=== PATIENT | male | born 1955 | race Caucasian/White ===

== ENCOUNTER 2017-04-25 19:50 | Observation (INO) | payer SELFPAY ==
[~2017-04-25] VITALS: Ht 193 cm; Wt 94.5 kg
[2017-04-25 19:54] VITALS: BP 136/86; PULSE 72; RESP 20; TEMP 99; O2SAT 98
--- NOTE | 2017-04-25 20:02 | PD ---
Physical Exam Time Seen by Provider: 20:00 Narrative 62yo M c/o L sided chest pain x 2 days. Left arm cramping. +SOB. Denies worse w/ activity; just comes on at any time. Patient seen in triage. VS reviewed. Awaiting bed placement. Data Data Last Documented VS Vital Signs Date Time Temp Pulse Resp B/P Pulse Ox O2 Delivery O2 Flow Rate FiO2 04/25/17 19:54 99.0 72 20 136/86 98 Room Air MDM Supervised Visit with YING: Raquel Clarke Apr 25, 2017 20:02
[2017-04-25 20:17] VITALS: BP 116/72; PULSE 70; RESP 18; O2SAT 98
[2017-04-25] MEDS ORDERED: SODIUM CHLORIDE 0.9% FLUSH 10 ML FLUSH IVF PRN (20:30)
[2017-04-25] MEDS ORDERED: ASPIRIN 325 MG TAB PO ONE (20:30)
--- NOTE | 2017-04-25 20:32 | PD ---
HPI Chief Complaint: Chest Pain Time Seen by Provider: 20:10 Travel History International Travel<30 days: No Contact w/Intl Traveler<30days: No Traveled to known affect area: No History of Present Illness HPI 62yo M with no significant PMH presents to the ED with c/o left sided chest pain. States it has been there for about 2 days, intermittent and has some cramping in left arm. Associated with nausea and diaphoresis. Denies any fever , cough, sob, vomiting, abdominal pain, focal weakness or numbness. Pt also mentions that the door hit his head about 3 weeks ago and he had a scalp laceration that healed on its own but there is some numbness right above the laceration. PFSH Past Medical History Medical History: Denies Significant Hx ?: Not Past Surgical History Surgical History: No Previous Surgery Social History Alcohol Use: Yes Tobacco Use: No Substance Use: No Allergies-Medications (Allergen,Severity, Reaction): Coded Allergies: No Known Allergies (Unverified , 04/25/17) Reported Meds & Prescriptions Reported Meds & Active Scripts Active No Active Prescriptions or Reported Medications Review of Systems Except as stated in HPI: all other systems reviewed are Neg Physical Exam Narrative GENERAL: 62yo M not in distress. SKIN: +Keloid left chest that has been there since he was in school. HEAD: +Healed 2cm left parietal scalp laceration. EYES: Pupils equal and round. No scleral icterus. No injection or drainage. ENT: No nasal bleeding or discharge. Mucous membranes pink and moist. NECK: Trachea midline. No JVD. CARDIOVASCULAR: Regular rate and rhythm. No murmur appreciated. RESPIRATORY: No accessory muscle use. Clear to auscultation. Breath sounds equal bilaterally. GASTROINTESTINAL: Abdomen soft, non-tender, nondistended. MUSCULOSKELETAL: No obvious deformities. No clubbing. No cyanosis. No edema. NEUROLOGICAL: Awake and alert. No obvious cranial nerve deficits. Motor grossly within normal limits. Normal speech. PSYCHIATRIC: Appropriate mood and affect; insight and judgment normal. Data Data Last Documented VS Vital Signs Date Time Temp Pulse Resp B/P Pulse Ox O2 Delivery O2 Flow Rate FiO2 04/25/17 21:41 90 16 128/76 118/70 04/25/17 21:41 96 Room Air 04/25/17 20:17 4 04/25/17 19:54 99.0 Orders Ckmb (Isoenzyme) Profile (04/25/17 20:19) Complete Blood Count With Diff (04/25/17 20:19) Comprehensive Metabolic Panel (04/25/17 20:19) Magnesium (Mg) (04/25/17 20:19) Prothrombin Time / Inr (Pt) (04/25/17 20:19) Act Partial Throm Time (Ptt) (04/25/17 20:19) Troponin I (04/25/17 20:19) Chest, Single Ap (04/25/17 20:19) Ecg Monitoring (04/25/17 20:19) Bilateral Bp Monitoring (04/25/17 20:19) Iv Access Insert/Monitor (04/25/17 20:19) Oximetry (04/25/17 20:) Oxygen Administration (04/25/17 20:19) Aspirin (Aspirin) (04/25/17 20:30) Sodium Chloride 0.9% Flush (Ns Flush) (04/25/17 20:30) Electrocardiogram (04/25/17 20:18) CKMB (04/25/17 20:25) CKMB% (04/25/17 20:25) Alcohol Withdrawal Asmt-Ciwa Q4HX18 (04/25/17 21:48) ^ Seizure Precautions (04/25/17 21:48) Lorazepam Inj (Ativan Inj) (04/25/17 22:00) Admit Order (Ed Use Only) (04/25/17 21:53) Alcohol (Ethanol) (04/25/17 20:25) Labs Laboratory Tests Test 04/25/17 20:25 White Blood Count 6.0 TH/MM3 Red Blood Count 4.19 MIL/MM3 Hemoglobin 13.9 GM/DL Hematocrit 39.1 % Mean Corpuscular Volume 93.2 FL Mean Corpuscular Hemoglobin 33.1 PG Mean Corpuscular Hemoglobin 35.5 % Concent Red Cell Distribution Width 13.4 % Platelet Count 169 TH/MM3 Mean Platelet Volume 6.5 FL Neutrophils (%) (Auto) 69.1 % Lymphocytes (%) (Auto) 15.2 % Monocytes (%) (Auto) 10.8 % Eosinophils (%) (Auto) 4.3 % Basophils (%) (Auto) 0.6 % Neutrophils # (Auto) 4.1 TH/MM3 Lymphocytes # (Auto) 0.9 TH/MM3 Monocytes # (Auto) 0.6 TH/MM3 Eosinophils # (Auto) 0.3 TH/MM3 Basophils # (Auto) 0.0 TH/MM3 CBC Comment DIFF FINAL Differential Comment Prothrombin Time 10.7 SEC Prothromb Time International 1.0 RATIO Ratio Activated Partial 27.5 SEC Thromboplast Time Sodium Level 135 MEQ/L Potassium Level 3.6 MEQ/L Chloride Level 101 MEQ/L Carbon Dioxide Level 22.6 MEQ/L Anion Gap 11 MEQ/L Blood Urea Nitrogen 11 MG/DL Creatinine 0.85 MG/DL Estimat Glomerular Filtration 92 ML/MIN Rate Random Glucose 88 MG/DL Calcium Level 8.9 MG/DL Magnesium Level 2.0 MG/DL Total Bilirubin 0.4 MG/DL Aspartate Amino Transf 36 U/L (AST/SGOT) Alanine Aminotransferase 54 U/L (ALT/SGPT) Alkaline Phosphatase 48 U/L Total Creatine Kinase 135 U/L Creatine Kinase MB 2.8 NG/ML Troponin I LESS THAN 0.02 NG/ML Total Protein 7.2 GM/DL Albumin 3.7 GM/DL Ethyl Alcohol Level 57 MG/DL [facility] Medical Decision Making Medical Screen Exam Complete: Yes Emergency Medical Condition: Yes Interpretation(s) EKG: NSR 60bpm. Normal axis. No ST segment elevation or depression. Differential Diagnosis ACS vs. musculoskeletal pain vs. anxiety Narrative Course 62yo M with left sided chest pain that is intermittent for 2-3 days. Labs reviewed, no leukocytosis. Troponin negative. CXR negative. Pt given aspirin 325mg PO. Sublingual nitro PRN chest pain ordered. Pt reevaluated at bedside and states chest pain has improved but his nerves are acting up. He does appear anxious so will give ativan 1mg IV. Pt states he had a beer this afternoon, states he does not drink every day and never had alcohol withdrawal. Vital signs are normal. Pt is not hypertensive or tachycardic but has a little tongue fasciculation. Will admit pt to chest pain center for serial EKG and cardiac enzyme. Will place CIWA orders just in case of alcohol withdrawal although I am thinking it is more anxiety. Pt still needs to have his chest pain evaluated with continual monitor and serial EKG and cardiac enzymes. Diagnosis Primary Impression: Chest pain Qualified Code: R07.9 - Chest pain, unspecified type Admitting Information Admitting Physician Requests: Observation Scripts No Active Prescriptions or Reported Meds Arleth Killian DO Apr 25, 2017 20:32
[2017-04-25 20:47] LABS: AUTOMATED NEUTROPHIL # 4.1 TH/MM3 (1.8-7.7); BASOPHIL % 0.6 % (0.0-2.0); EOSINOPHIL # 0.3 TH/MM3 (0-0.4); EOSINOPHIL % 4.3 % (0.0-4.0); HEMATOCRIT 39.1 % (39.0-51.0); HEMO FLAGS DIFF FINAL; LYMPH % 15.2 % (9.0-44.0); LYMPHOCYTE # 0.9 TH/MM3 (1.0-4.8); MEAN CELL VOLUME 93.2 FL (80.0-100.0); MEAN CORPUSCULAR HEMOGLOBIN 33.1 PG (27.0-34.0); MEAN CORPUSCULAR HGB CONC 35.5 % (32.0-36.0); MONO % 10.8 % (0.0-8.0); NEUT % 69.1 % (16.0-70.0); PLATELET COUNT 169 TH/MM3 (150-450); RED BLOOD COUNT 4.19 MIL/MM3 (4.50-5.90); RED CELL DISTRIBUTION WIDTH 13.4 % (11.6-17.2)
--- NOTE | 2017-04-25 20:59 | RADRPT ---
EXAM DATE/TIME: 04/25/2017 20:43 [facility] COMPARISON: No previous studies available for comparison. INDICATIONS : Chest pain. MEDICAL HISTORY : None. SURGICAL HISTORY : None. ENCOUNTER: Initial ACUITY: 3 days PAIN SCORE: 10/10 LOCATION: Left chest FINDINGS: A single view of the chest demonstrates the lungs to be symmetrically aerated without evidence of mas s, infiltrate or effusion. The cardiomediastinal contours are unremarkable. Osseous structures are intact. CONCLUSION: No acute disease. Lucho Kelley MD on April 25, 2017 at 20:56 Board Certified Radiologist. This report was verified electronically.
[2017-04-25 21:02] LABS: APTT (PATIENT) 27.5 SEC (24.3-30.1); PROTHROMBIN TIME - PATIENT 10.7 SEC (9.8-11.6)
[2017-04-25 21:16] LABS: ANION GAP 11 MEQ/L (5-15); BICARBONATE 22.6 MEQ/L (21.0-32.0); BLOOD UREA NITROGEN 11 MG/DL (7-18); CHLORIDE 101 MEQ/L (98-107); GLOMERULAR FILTRATION RATE 92 ML/MIN (>89); POTASSIUM 3.6 MEQ/L (3.5-5.1); SODIUM (NA) 135 MEQ/L (136-145)
[2017-04-25 21:18] LABS: ALT (GPT) 54 U/L (12-78)
[2017-04-25 21:22] LABS: ALKALINE PHOSPHATASE 48 U/L (45-117); AST (GOT) 36 U/L (15-37); TOTAL BILIRUBIN ADULT 0.4 MG/DL (0.2-1.0)
[2017-04-25 21:34] LABS: CREATINE KINASE 135 U/L (39-308)
[2017-04-25 21:41] VITALS: BP_SYST 118; BP_SYST 128; BP_DIAS 70; BP_DIAS 76; PULSE 90; RESP 16; O2SAT 96
[2017-04-25] MEDS ORDERED: LORazepam 2 MG TAB PO PRN (22:00)
[2017-04-25] MEDS ORDERED: LORazepam 1 MG TAB PO PRN (22:00)
[2017-04-25] MEDS ORDERED: LORazepam 2 MG/ML VIAL IV PUSH PRN ×4 (22:00)
[2017-04-25] MEDS ORDERED: FLUMAZENIL 0.5 MG/5 ML VIAL IV PUSH PRN (22:00)
[2017-04-25] MEDS ORDERED: LORazepam 2 MG/ML VIAL IV PUSH ONE (22:00)
[2017-04-25 22:16] VITALS: BP 132/66
[2017-04-25 22:25] VITALS: O2SAT 98
[2017-04-25 22:36] LABS: CKMB 2.8 NG/ML (0.5-3.6)
[2017-04-25] MEDS ORDERED: NITROGLYCERIN 0.4 MG SL 25 TABS/BTL SL PRN (23:00)
[2017-04-25 23:25] VITALS: PULSE 62
[2017-04-26 00:35] LABS: CREATINE KINASE 123 U/L (39-308)
[2017-04-26 00:47] LABS: CKMB 2.5 NG/ML (0.5-3.6)
[2017-04-26 01:26] VITALS: BP 128/74; PULSE 77; RESP 18; TEMP 98.4; O2SAT 97
[2017-04-26 03:18] LABS: CREATINE KINASE 99 U/L (39-308)
[2017-04-26 03:50] VITALS: PULSE 60
[2017-04-26 08:04] VITALS: BP 115/71; PULSE 54; RESP 16; TEMP 98.2; O2SAT 96
[2017-04-26 08:25] VITALS: O2SAT 96
--- NOTE | 2017-04-26 08:57 | HHI.HP ---
HPI Primary Care Physician No Primary Care Physician Chief Complaint Chest pain History of Present Illness This is a 62-year-old male that presents to the ED via private vehicle complaining of a left-sided chest discomfort yesterday that was intermittent lasting about an hour a time. He felt nauseous at times and also diaphoretic. No shortness of breath. He states he had a similar episode about a year ago while he was in [place] and had a stress test that was okay. 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 Denies recent illnesses. Denies fevers or chills. Review of Systems General: Patient denies fevers, chills recent, and recent travel HEENT: Patient denies headache, sore throat, difficulty swallowing. Cardiovascular: Has the chest discomfort as mentioned above. Denies sensation of heart beating rapidly or irregularly. No syncope. He felt diaphoretic at times yesterday. Respiratory: Denies shortness of breath or inspirational chest discomfort. Denies coughing wheezing or hemoptysis. GI: He felt a little nauseous yesterday. Patient denies vomiting, diarrhea, abdominal pain, bloody stools. Musculoskeletal: Patient denies joint pain or edema. Denies calf pain or edema. Neurovascular: Patient denies numbness, tingling, weakness in extremities. Denies headache. Endocrine: Denies polyuria and polydipsia. Hematologic: Denies easy bruising. Skin: Denies rash or itching. He has chronic keloids on his anterior chest wall. Past Family Social History Allergies: Coded Allergies: No Known Allergies (Unverified , 04/25/17) Past Medical History Denies hypertension, hyperlipidemia, diabetes, and known CAD. Past Surgical History Denies surgeries. Reported Medications Reported Meds & Active Scripts Active No Active Prescriptions or Reported Medications Active Ordered Medications Current Medications Medications (Trade) Dose Ordered Sig/Orlin Route Start Time Stop Time Status Last Admin (NS Flush) 2 ml UNSCH PRN IVF 04/25/17 20:30 (Romazicon Inj) 0.2 mg Q1M PRN IV PUSH 04/25/17 22:00 (Ativan) 1 mg Q4H PRN PO 04/25/17 22:00 (Ativan Inj) 1 mg Q4H PRN IV PUSH 04/25/17 22:00 (Ativan) 2 mg Q2H PRN PO 04/25/17 22:00 (Ativan Inj) 2 mg Q2H PRN IV PUSH 04/25/17 22:00 (Ativan Inj) 2 mg Q1H PRN IV PUSH 04/25/17 22:00 (Ativan Inj) 2 mg Q15M PRN IV PUSH 04/25/17 22:00 (Nitrostat Sl) 0.4 mg Q5M PRN SL 04/25/17 23:00 Family History Denies family history of CAD. Social History Patient quit smoking 20 years ago but prior that he smoked 1-1-1/2 packs of cigarettes daily for 20 years. He has on average 4-6 beers 4 times a week. He has occasional marijuana. 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 Physical Exam Vital Signs Vital Signs Date Time Temp Pulse Resp B/P Pulse Ox O2 Delivery O2 Flow Rate FiO2 04/26/17 08:25 96 21 04/26/17 08:04 98.2 54 16 115/71 96 04/26/17 03:50 60 04/26/17 01:26 98.4 77 18 128/74 97 04/25/17 23:25 62 04/25/17 22:25 98 Nasal Cannula 2.00 04/25/17 22:16 77 15 132/66 98 04/25/17 21:41 90 16 128/76 118/70 04/25/17 21:41 96 Room Air 04/25/17 21:41 96 Room Air 04/25/17 20:17 70 18 116/72 98 Nasal Cannula 4 04/25/17 20:10 Room Air 04/25/17 19:54 99.0 72 20 136/86 98 Room Air Physical Exam GENERAL: This is a well-nourished, well-developed patient, in no apparent distress. Patient speaks in clear complete sentences. Patient is pleasant. HEENT: Head is atraumatic and normocephalic. Neck is supple without lymphadenopathy and trachea is midline. No JVD or carotid bruits. CARDIOVASCULAR: Regular rate and rhythm without murmurs, gallops, or rubs. RESPIRATORY: Clear to auscultation. Breath sounds equal bilaterally. No wheezes , rales, or rhonchi. Chest wall is nontender. No use of accessory muscles. GASTROINTESTINAL: Abdomen is nontender, nondistended. Abdomen soft. No obvious pulsatile mass or bruit. No CVA tenderness. Strong femoral pulses bilaterally. Normal bowel sounds in all quadrants. MUSCULOSKELETAL: Patient is moving upper and lower extremities freely. No calf tenderness or edema, no Homans sign. Strong pulses in upper and lower extremities. NEUROLOGICAL: Patient is alert and oriented. Cranial nerves 2-12 are grossly intact. No focal deficits and speech is clear. SKIN: No rash and turgor is normal. There are keloids on his anterior chest wall. Laboratory Laboratory Tests Test 04/25/17 04/25/17 04/26/17 20:25 23:45 02:30 White Blood Count 6.0 Red Blood Count 4.19 Hemoglobin 13.9 Hematocrit 39.1 Mean Corpuscular Volume 93.2 Mean Corpuscular Hemoglobin 33.1 Mean Corpuscular Hemoglobin 35.5 Concent Red Cell Distribution Width 13.4 Platelet Count 169 Mean Platelet Volume 6.5 Neutrophils (%) (Auto) 69.1 Lymphocytes (%) (Auto) 15.2 Monocytes (%) (Auto) 10.8 Eosinophils (%) (Auto) 4.3 Basophils (%) (Auto) 0.6 Neutrophils # (Auto) 4.1 Lymphocytes # (Auto) 0.9 Monocytes # (Auto) 0.6 Eosinophils # (Auto) 0.3 Basophils # (Auto) 0.0 CBC Comment DIFF FINAL Differential Comment Prothrombin Time 10.7 Prothromb Time International 1.0 Ratio Activated Partial 27.5 Thromboplast Time Sodium Level 135 Potassium Level 3.6 Chloride Level 101 Carbon Dioxide Level 22.6 Anion Gap 11 Blood Urea Nitrogen 11 Creatinine 0.85 Estimat Glomerular Filtration 92 Rate Random Glucose 88 Calcium Level 8.9 Magnesium Level 2.0 Total Bilirubin 0.4 Aspartate Amino Transf 36 (AST/SGOT) Alanine Aminotransferase 54 (ALT/SGPT) Alkaline Phosphatase 48 Total Creatine Kinase 135 123 99 Creatine Kinase MB 2.8 2.5 Troponin I LESS THAN 0.02 LESS THAN 0.02 LESS THAN 0.02 Total Protein 7.2 Albumin 3.7 Ethyl Alcohol Level 57 Result Diagram: 04/25/17202404/25/172024 Imaging Last 24 hours Impressions Chest X-Ray 04/25/172018 Signed Impressions: Service Date/Time: Tuesday, April 25, 2017 20:43 - CONCLUSION: No acute disease. Lucho Kelley MD Course EKGs have sinus rhythm to sinus bradycardia without significant ST segment depressions or elevations. There are occasional PVCs. Assessment and Plan Assessment and Plan * Chest pain: Patient has had serial cardiac enzymes and EKGs for ruling out purposes. He has been seen by Dr. Huff cardiology in the chest pain center and will undergo a Wei protocol ETT. He'll be discharged home if the stress test was nonischemic. Patient is stable at this time. He is agreeable to this plan. Melecio Gooden Apr 26, 2017 08:57
--- NOTE | 2017-04-26 09:35 | HHI.DCPOC ---
Discharge Care Plan Diagnosis: (1) Chest pain Goals to Promote Your Health * To prevent worsening of your condition and complications * To maintain your health at the optimal level Directions to Meet Your Goals Take your medications as prescribed Follow your dietary instruction Follow activity as directed Keep your appointments as scheduled Take your immunizations and boosters as scheduled If your symptoms worsen call your PCP, if no PCP go to Urgent Care Center or Emergency Room Smoking is Dangerous to Your Health. Avoid second hand smoke Call the 24-hour hour crisis hotline for domestic abuse at Melecio Gooden Apr 26, 2017 09:35
[2017-04-26 11:32] VITALS: PULSE 55
[2017-04-26 11:44] VITALS: BP 112/58; PULSE 60; RESP 16; TEMP 98.4; O2SAT 96
--- NOTE | 2017-04-26 16:59 | EKG ---
Date Performed: 04/25/2017 Time Performed: 20:18:53 PTAGE: 62 years EKG: Sinus rhythm NORMAL ECG NO PREVIOUS TRACING DOCTOR: Thea Huff Interpretating Date/Time 04/26/2017 16:58:44
--- NOTE | 2017-04-26 17:01 | EKG ---
Date Performed: 04/25/2017 Time Performed: 23:46:53 PTAGE: 62 years EKG: Sinus rhythm WITH OCCASIONAL SUPRAVENTRICULAR PREMATURE COMPLEXES BORDERLINE ECG Since PREVIOUS TRACING , no significant change noted PREVIOUS TRACIN04/25/2017 20.18 DOCTOR: Thea Huff Interpretating Date/Time 04/26/2017 17:00:17
--- NOTE | 2017-04-26 17:01 | EKG ---
Date Performed: 04/26/2017 Time Performed: 03:27:27 PTAGE: 62 years EKG: SINUS BRADYCARDIA WITH FREQUENT SUPRAVENTRICULAR PREMATURE COMPLEXES ABNORMAL RHYTHM ECG Si nce PREVIOUS TRACING , no significant change noted PREVIOUS TRACIN04/25/2017 23.46 DOCTOR: Thea Huff Interpretating Date/Time 04/26/2017 17:01:09
--- NOTE | 2017-04-26 17:04 | TR ---
Date Performed: 04/26/2017 Time Performed: 09:01:29 DOCTOR: Thea Huff DRUG LIST: CLINICAL HISTORY: CHEST PAIN REASON FOR TEST: REASON FOR ENDING: OBSERVATION: CONCLUSION: ROD PROTOCOL. NO CP. TEST STOPPED AFTER REACHING GOAL HR SECONDARY TO SOB AND LEG FATIGUE.Maximum BN=634 Max HR Achieved=88.0% Maximum GL=729/80 Total Exercise Time=11:11 COMMENTS:
== END 2017-04-26 15:53 | disposition home or self-care (01) ==
LOC: NEPC 19:50 → NEDA 21:54 → NEPHCDU 23:14
PROVIDERS: ADMIT Internal Medicine Interventional Cardiology; ATTEND Internal Medicine Interventional Cardiology
DX: R07.89 Other chest pain (principal); Z87.891 Personal history of nicotine dependence
CPT/HCPCS: 71010; 80053; 80307; 82550; 82552; 83735; 84484; 85025; 85610; 85730; 93005; 93017; 96374; 99285; G0378; J2060

== ENCOUNTER 2017-08-24 18:22 | Emergency (ER) | payer SELFPAY ==
[~2017-08-24] VITALS: Ht 195.6 cm; Wt 105.0 kg
[2017-08-24 18:23] VITALS: BP 129/75; PULSE 63; RESP 16; TEMP 98.4; O2SAT 99
== END 2017-08-24 19:30 | disposition left against medical advice (07) ==
LOC: NED 18:22
DX: M79.672 Pain in left foot (principal); Z53.21 Procedure and treatment not carried out due to patient leaving prior to being seen by health care provider
CPT/HCPCS: 99281